=== PATIENT | male | born 1955 | race Caucasian/White ===

== ENCOUNTER 2019-11-18 21:35 | Observation (INO) ==
--- NOTE | 2019-11-18 21:58 | Emergency Department Note ---
Impression & Plan Acute dehydration, Hypomagnesemia, Hypokalemia ED Provider Note NAME: GERALD RIVERA AGE: 63 SEX: M : 1955 ARRIVES VIA: Walk-In INFORMANT: Patient, ED PROVIDER(S): Valdo Orozco MD Chief Complaint: Confusion HPI: Patient does present with his son who is concerned about confusion. The patient has not been seen by family in approximately 1-1/2 months. Patient has been acting more strange and does not seem to be himself. The son is also concerned about weight loss as well as his ability to care for himself as he is noticed that he seems disheveled and has lost weight. The patient intermittently will respond to verbal commands but the patient is awake and alert. Patient does admit to using tobacco but denies alcohol. Son does report that the patient was at [facility] but he was unable to get any additional information due to HIPAA laws and he is unaware as to whether or not the patient had been prescribed any outpatient medications or if he has been taking them appropriately. ROS: Limited secondary to patient's cooperativeness. Past medical history: See below Surgical history: See below Social history: See below Physical Exam: GENERAL: Disheveled and thin in appearance. Wearing a mask. NAD, non-toxic. EYE EXAM: Normal conjunctiva. PERRL, no anisocoria and EOM's grossly intact w/o pain. NECK: Supple, no nuchal rigidity, no adenopathy, non-tender. No signs of meningismus. LUNGS: Clear to auscultation. Normal chest wall mechanics. HEART: Tachycardic and regular, no MRG. ABDOMEN: Abdomen soft, non-tender, normo-active bowel sounds, no masses, no rebound or guarding. BACK: No CVA TTP. SKIN: No rashes and no bruising. UPPER EXTREMITIES: Upper extremities are grossly normal. LOWER EXTREMITIES: Grossly normal, no edema. NEURO EXAM: Awake alert and moves all 4 extremities. Differential diagnoses: Infection, dehydration, metabolic abnormality, hypo/hyperglycemia, electrolyte disturbance, anemia, hypoxia, cardiac sources, intracerebral event, toxicologic, neurologic, as well as other pathologies. Mood disorder, infection, hypoglycemia, electrolyte abnormalities, cardiac sources, intracerebral event, toxicologic, trauma, neurologic, as well as other pathologies. Course: Patient was seen and evaluated the bedside. Full history physical exam was performed. EKG: Indication: Tachycardia Sinus tachycardia, rate 119, normal intervals, normal axis, slight depression in V2 and V3. Slight depressions do appear new from comparison EKG April 11, 2005. Patient's rate has also increased since then. Imaging Studies: Radiology results as stated below per my review in the radiologist's interpretation: CT head: Motion artifact. No definite acute intracranial process. Radiologist Nohemy Desir MD Chest x-ray 1 view Impression: No obvious consolidation, pleural effusion, or pneumothorax. Cardiac monitoring: An order was placed for continuous cardiac monitoring. The monitor shows a rate of 125 with sinus tachycardia rhythm. MDM: Patient does present concern for weakness. The patient did have blood work completed was given IV fluids. Patient does have prerenal azotemia consistent with dehydration. Patient did receive 2 L of IV fluids. The patient does have very mild hypomagnesemia and hypokalemia. The patient was ordered magnesium and potassium for replacement. Patient does have a mild white count but no infectious symptoms normal hemoglobin and platelet count. Alcohol is negative. Patient's troponin is undetectable. He did have mild hypercalcemia but was ordered IV fluids for replacement. Patient was seen and evaluated by psych case assembler. The patient does seem to have a complete inability to care. Patient does suffer from paranoia. I did speak the on-call hospitalist and the patient was admitted to the medical service with a psychiatric consult due to concern for failure to thrive metabolic electrolyte imbalance. Past Med/Surg History Medical History Anxiety Family History Other No significant family history Social History Smoking Status: Current every day smoker Tobacco Type: Cigarettes Hx Alcohol Use: Yes Hx Substance Use: No marital status: Single Current Living Situation: Alone Feels Safe at Home: Yes Allergies Allergies Allergy/AdvReac Type Severity Reaction Status Date / Time No Known Allergies Allergy Unknown Verified 11/18/19 22:50 Home Meds Home Medications Medication Instructions Recorded Confirmed simvastatin 40 mg PO DAILY 11/18/19 11/18/19 Results & Data (ED) Vital Signs Vital Signs - 24 hr 11/18/19 21:42 11/18/19 22:42 11/19/19 00:35 Temperature 37 C Temperature Source Oral Pulse Rate 130 H Pulse Rate [Finger] 115 H 82 Respiratory Rate 20 18 18 Respiratory Effort / Characteristics Non-Labored Spontaneous Non-Labored Spontaneous Respiratory Depth Normal Normal Respiratory Pattern Regular Regular Blood Pressure 133/90 Blood Pressure [Right Arm] 127/89 127/86 Blood Pressure Mean 104 Blood Pressure Mean [Right Arm] 101 99 Blood Pressure Position [Right Arm] Lying Pulse Oximetry 97 98 98 Oxygen Delivery Method Room Air Room Air Room Air Sepsis Recent Fever Within 48 Hours No Sepsis New/Unexplained Change in Mental Status No Sepsis Action Taken by Nursing No Action Required Home Medications Current Medication List: was personally reviewed by me Laboratory Data Attestation: I reviewed the patient's lab results. Result diagrams: 11/18/19 22:35 11/18/19 22:35 Lab Results 11/18/19 11/18/19 11/18/19 Range/Units 22:35 22:35 22:35 WBC 11.60 H (4.8-10.8) K/uL RBC 4.89 (4.7-6.1) M/uL Hgb 15.2 (14.0-18.0) g/dL Hct 41.7 L (42-52) % MCV 85.3 (80-100) fL MCH 31.1 (25-34) pg MCHC 36.5 H (32-36) g/dL RDW Std Deviation 41.0 (36.4-46.3) fL RDW Coeff of Ludwig 13.4 (11.5-14.5) % Plt Count 150 (130-400) K/uL MPV 9.8 (7.4-10.4) fL Immature Gran % (Auto) 0.3 % Neut % (Auto) 72.8 % Lymph % (Auto) 12.8 % Pleasants % (Auto) 13.8 % Eos % (Auto) 0.2 % Baso % (Auto) 0.1 % Neut # (Auto) 8.46 H (1.4-6.5) K/uL Lymph # (Auto) 1.48 (1.2-3.4) K/uL Pleasants # (Auto) 1.60 H (0.11-0.59) K/uL Eos # (Auto) 0.02 (0-0.5) K/uL Baso # (Auto) 0.01 (0-0.2) K/uL Immature Gran # (Auto) 0.03 H (0.00-0.02) K/uL PT 14.0 H (9.0-12.0) Seconds INR 1.3 H (0.9-1.1) Sodium 135 L (136-145) mmol/L Potassium 2.8 L (3.5-5.1) mmol/L Chloride 99 (98-107) mmol/L Carbon Dioxide 24 (21-32) mmol/L Anion Gap 13.0 H (3-11) BUN 26 H (7-18) mg/dl Creatinine 1.05 (0.6-1.4) mg/dl Est Cr Clr Drug Dosing Not Reportable Est GFR ( Amer) 88.4 Est GFR (Non-Af Amer) 76.2 BUN/Creatinine Ratio 25.1 H (10-20) Glucose 147 H (70-99) mg/dl Calcium 10.3 H (8.5-10.1) mg/dl Magnesium 1.7 L (1.8-2.4) mg/dl Total Bilirubin 1.3 H (0.2-1) mg/dl AST 22 (15-37) U/L ALT 19 (12-78) U/L Alkaline Phosphatase 60 (45-117) U/L Troponin I < 0.015 (0-0.045) ng/ml Total Protein 7.1 (6.4-8.2) gm/dl Albumin 3.9 (3.4-5.0) gm/dl Globulin 3.2 (2.5-4.0) gm/dl Albumin/Globulin Ratio 1.2 (0.9-2) TSH 2.250 (0.300-4.500) uIu/ml Salicylates (2.8-20) mg/dl Acetaminophen (10-30) ug/ml Ethyl Alcohol mg/dL (0-3) mg/dl 11/18/19 11/18/19 Range/Units 22:35 22:35 WBC (4.8-10.8) K/uL RBC (4.7-6.1) M/uL Hgb (14.0-18.0) g/dL Hct (42-52) % MCV (80-100) fL MCH (25-34) pg MCHC (32-36) g/dL RDW Std Deviation (36.4-46.3) fL RDW Coeff of Ludwig (11.5-14.5) % Plt Count (130-400) K/uL MPV (7.4-10.4) fL Immature Gran % (Auto) % Neut % (Auto) % Lymph % (Auto) % Pleas[place] % (Auto) % Eos % (Auto) % Baso % (Auto) % Neut # (Auto) (1.4-6.5) K/uL Lymph # (Auto) (1.2-3.4) K/uL Pleasants # (Auto) (0.11-0.59) K/uL Eos # (Auto) (0-0.5) K/uL Baso # (Auto) (0-0.2) K/uL Immature Gran # (Auto) (0.00-0.02) K/uL PT (9.0-12.0) Seconds INR (0.9-1.1) Sodium (136-145) mmol/L Potassium (3.5-5.1) mmol/L Chloride (98-107) mmol/L Carbon Dioxide (21-32) mmol/L Anion Gap (3-11) BUN (7-18) mg/dl Creatinine (0.6-1.4) mg/dl Est Cr Clr Drug Dosing Est GFR ( Amer) Est GFR (Non-Af Amer) BUN/Creatinine Ratio (10-20) Glucose (70-99) mg/dl Calcium (8.5-10.1) mg/dl Magnesium (1.8-2.4) mg/dl Total Bilirubin (0.2-1) mg/dl AST (15-37) U/L ALT (12-78) U/L Alkaline Phosphatase (45-117) U/L Troponin I (0-0.045) ng/ml Total Protein (6.4-8.2) gm/dl Albumin (3.4-5.0) gm/dl Globulin (2.5-4.0) gm/dl Albumin/Globulin Ratio (0.9-2) TSH (0.300-4.500) uIu/ml Salicylates < 1.7 L (2.8-20) mg/dl Acetaminophen < 2 L (10-30) ug/ml Ethyl Alcohol mg/dL < 3.0 (0-3) mg/dl Administered Medications Magnesium Sulfate/Dextrose (Magnesium Sulfate / D5w) 1 gm in 100 mls @ 50 mls/hr IV ONE ONE Stop: 11/19/19 01:35 Last Admin: 11/18/19 23:47 Dose: 50 mls/hr Documented by: [id number] Discontinued Medications Sodium Chloride (Nss 1000ml) 2,000 mls @ 999 mls/hr IV .Q2H1M TAI Stop: 11/19/19 00:00 Last Admin: 11/18/19 22:39 Dose: 999 mls/hr Documented by: [id number] Potassium Chloride (Potassium Chloride 20 Meq Tabcr) 40 meq PO NOW STA Stop: 11/18/19 23:37 Last Admin: 11/18/19 23:46 Dose: 40 meq Documented by: [id number] Discharge Plan Visit Data Chief Complaint: Confusion Stated Complaint: AMS ED Provider: Valdo Orozco Discharge Problem: Acute dehydration, Hypomagnesemia, Hypokalemia Forms Stand Alone Forms: My [facility] Medical Prescriptions Prescriptions: No Action simvastatin 40 mg tablet 40 mg PO DAILY RF: 0
[2019-11-18] MEDS ORDERED: SODIUM CHLORIDE 0.9% 1000ML 2,000 ML IV SCH (22:00)
[2019-11-18 23:00] LABS: Basophils # (auto) 0.01 K/uL (0-0.2); Basophils % (auto) 0.1 %; Eosinophils # (auto) 0.02 K/uL (0-0.5); Eosinophils % (auto) 0.2 %; Hematocrit (blood only) 41.7 % (42-52); Hemoglobin 15.2 g/dL (14.0-18.0); Immature Granulocytes # (auto) 0.03 K/uL (0.00-0.02); Immature Granulocytes % (auto) 0.3 %; Lymphocytes # (auto) 1.48 K/uL (1.2-3.4); Lymphocytes % (auto) 12.8 %; Mean Corpuscular Hemoglobin 31.1 pg (25-34); Mean Corpuscular Hgb Conc 36.5 g/dL (32-36); Mean Corpuscular Volume 85.3 fL (80-100); Mean Platelet Volume 9.8 fL (7.4-10.4); Monocytes % (auto) 13.8 %; Neutrophils # (auto) 8.46 K/uL (1.4-6.5); Neutrophils % (auto) 72.8 %; Platelet Count 150 K/uL (130-400); RDW Coefficient of Variation 13.4 % (11.5-14.5); Red Blood Count 4.89 M/uL (4.7-6.1)
[2019-11-18 23:15] LABS: INR 1.3 (0.9-1.1)
[2019-11-18 23:20] LABS: Alanine Aminotransferase 19 U/L (12-78); Albumin Level 3.9 gm/dl (3.4-5.0); Aspartate Aminotransferase 22 U/L (15-37); BUN Creatinine Ratio 25.1 (10-20); Blood Urea Nitrogen 26 mg/dl (7-18); Calcium 10.3 mg/dl (8.5-10.1); Carbon Dioxide 24 mmol/L (21-32); Chloride 99 mmol/L (98-107); Est GFR (African American) 88.4; Est GFR (Non-African American) 76.2; Glucose 147 mg/dl (70-99); Magnesium 1.7 mg/dl (1.8-2.4); Potassium 2.8 mmol/L (3.5-5.1); Sodium 135 mmol/L (136-145)
[2019-11-18 23:30] LABS: Albumin Globulin Ratio 1.2 (0.9-2); Alkaline Phosphatase 60 U/L (45-117); Bilirubin,Total 1.3 mg/dl (0.2-1); Globulin 3.2 gm/dl (2.5-4.0); Total Protein 7.1 gm/dl (6.4-8.2); Troponin I < 0.015 ng/ml (0-0.045)
[2019-11-18] MEDS ORDERED: POTASSIUM CHLORIDE 20 MEQ TABCR PO STA (23:36)
[2019-11-18] MEDS ORDERED: MAGNESIUM SULFATE / D5W 1 GM/100 ML BAG IV ONE (23:36)
[2019-11-18 23:37] LABS: Acetaminophen < 2 ug/ml (10-30); Salicylate < 1.7 mg/dl (2.8-20)
--- NOTE | 2019-11-19 01:33 | History & Physical Report ---
Date of Service November 19, 2019 Assessment & Plan (1) Acute dehydration: Anshu Sosa is a 63-year-old male with a past medical history of emergency department evaluation for anxiety and potential auditory hallucinations who presents with his son who was concerned for failure to thrive. Failure to thrive and malnutrition,? Underlying psychosis, psychiatric disorder - Pt with flat affect and poverty of speech. History limited. Pt not guarded, but offers little spontaneous information. Salicylate/acetaminophen negative, alcohol negative at time of admit. Patient denies alcohol/substance use Patient 84 kg in June, 75kg at admit. - Pt endorses minimal solid food intake, reports he drinks most meals which are often chocolate milk. - Pt brought in by family, reports he lives alone in [place]. - Electrolyte disturbances as below -Concern for primary underlying psychiatric/cognitive condition. Patient's past history of hearing voices and his flat affect with easy distractibility and gazing at unclear stimuli around the room during HPI raises concern for underlying psychosis. Psychiatry consulted. TSH normal -Phos pending Electrolyte disturbance Suspect secondary to severe malnutrition Potassium 2.8, sodium 135, elevated BUN with normal creatinine, magnesium 1.7 Electrolyte repletion, 1 hour after IV infusions complete then BMP every [address] depressions in V4 Reported on admission, minimal changes on EKG at 2231 with no T wave inversions or reciprocal changes appreciated Troponin negative on admission Patient without chest pain QTc 433 Hyperglycemia A1c pending Insulin SSI Regular diet, nutrition consult for above Elevated INR Elevated INR of 1.3, total bilirubin 1.3 with normal AST/ALT Patient denies abdominal pain/clinical history Suspect synthetic dysfunction with nutritional depletion, differential includes biliary disease. Liver ultrasound ordered. Disposition: Med surgical, with one-to-one. DVT prophylaxis: SCDs, heparin 5000 3 times daily. Note that in the setting of his hepatic dysfunction and elevated INR has not been shown to be protective against venous thrombosis. CODE STATUS: Full code FEN GI: Electrolyte repletion as above, NSS +20 KCl 100 cc/h (2) Hypomagnesemia: (3) Hypokalemia: History of Present Illness Chief Complaint: Failure to thrive Primary Care Provider: Calderon Elizalde Anshu Sosa is a 63-year-old male with a past medical history of emergency department evaluation for anxiety and potential auditory hallucinations who presents with his son who was concerned for failure to thrive. Anshu was brought into the emergency department by his son who had not seen him in a month and a half, but reports that his father appears to have lost weight, has been disheveled, and is not able to care for himself at home. Patient has a history of inpatient psych hospitalization in [place], however due to refusal to share information/records the son and provider team is unaware of the details of that admission. He was seen in 06/13 at the emergency department and at that time had expressed depressed mood with SI with plan and positive HI. When asked if he remembers being in the emergency department previously patient reports "I think", but is does not give details. He reports that he was started on medication during his hospitalization at [facility], but does not know which medicine he was started on, and has not taken it in "a while "and reports he is not sure about how long it is been. He denies current SI/HI/AH/VH. He endorses that he still struggles with anxiety, but is not sure about what. Denies pain, fever, chills, recent illness. He reports that he eats "normally ". He reports that he "drinks mostly liquids "for his meals, usually chocolate milk. Reports that he does eat "sometimes regular food ", but but does not name any that he has eaten in the last month or give a timeframe for the last time that he had solid food. He denies diarrhea/constipation/abdominal pain/nausea/vomiting. History limited by affect/cognitive status. Limited medical, surgical, allergy, and social history and EMR reviewed. Patient denies alcohol, tobacco, and recreational drug use. CODE STATUS: Full code, patient does not show a good understanding of what CPR is or why the question is being asked. Allergies Allergy/AdvReac Type Severity Reaction Status Date / Time No Known Allergies Allergy Unknown Verified 11/18/19 22:50 Home Medications Home Medications Medication Instructions Recorded Confirmed Type simvastatin 40 mg PO DAILY 11/18/19 11/18/19 History Past Med/Surg History Medical History Anxiety Family History Other No significant family history Social History (Reviewed 11/19/19 @ 19:14 by SHARI Marshall Smoking Status: Never smoker Tobacco Type: Cigarettes Hx Alcohol Use: No Hx Substance Use: No Preferred Language: Estonian Communication Ability: Effective Non Destructive Evaluation Specialist Required: No marital status: Single Current Living Situation: Alone Other Information That Helps Us Care for You: No Feels Safe at Home: Yes Safety Concerns: Feels Safe At This Time Review of Systems Review of Systems: Constitutional: Denies fever, chills. Eyes: Denies double vision, vision change, eye pain ENT: Denies ear pain, sore throat, sinus pain Cardiovascular: Denies Chest pain, chest pressure, palpitations, extremity swelling Respiratory: Denies shortness of breath, cough, sputum production, difficulty breathing Gastrointestinal: Denies abdominal pain, nausea, vomiting, constipation, diarrhea Genitourinary: Denies pain with urination Musculoskeletal: Denies weakness, muscle aches/pain, joint aches/pain Integumentary:Denies rash, lesions, bruising Neurological: Denies headache, numbness, tingling, focal weakness Psych: Denies active and passive SI, HI. Denies auditory, visual, and olfactory hallucinations. Physical Exam Physical Exam: General: A&Ox1. NAD. Cooperative. HEENT: Atraumatic, normocephalic. Pulm: CTAB A&P. -wheezes, -rales, -rhonchi. Symmetrical chest rise. No increase work of breathing. No respiratory distress. Cardiac: RRR, -mrg. Radial pulses intact and symmetrical. Psych: Appearance: Disheveled, unshowered, unshaven Speech: Speech with slow rate, increased latency, sot volume. No stuttering. Poverty of spontaneous speech. Behavior: Decreased activity. Gazes around the room, appears intermittently distracted. Otherwise makes adequate eye contact. Cooperative, friendly Thought Processes: Poverty of spontaneous speech. Thought Content: Denies SI/HI, rumination. Endorses anxiety, does not eleborate on cause. Perceptions: Denies AH/VH. Appears distracted gazing around the room, otherwise not responding to internal stimuli. No delusions are present. Mood "OK". Affect flat. Range: Blunted/flattened Cognition: Unable to assess, gives limited appropriate answers to questions Insight/Judgment: Limited/difficult to assess. Results & Data Results & Data ([facility]) Vital Signs (Past 12 Hours) Vital Signs Temp Pulse Pulse Resp BP BP Pulse Ox 11/19/19 00:35 82 18 127/86 98 11/18/19 22:42 115 H 18 127/89 98 11/18/19 21:42 37 C 130 H 20 133/90 97 Supervising Physician Co-Signing Physician Notes Attending addendum: I have physically seen this patient, have supervised the medical residents activities, and agree with the H&P unless as otherwise noted. Assessment and Plan: Failure to thrive/protein calorie malnutrition/electrolyte disturbance- Multifactorial, including: Noncompliance with psychiatric treatment, not acceptable to be living alone. Electrolyte disturbance/dehydration- IV fluids as noted. Follow serial laboratories. Consult palliative care/public health social worker. Remainder orders and notations as noted Resident Activity Tracking Resident Involvement: Resident Care Provided Care Provided: Adult Hospital Medicine
[2019-11-19 02:19] LABS: Phosphorus 1.5 mg/dl (2.5-4.9)
[2019-11-19] MEDS ORDERED: POTASSIUM PHOS 3 MMOL/1 ML INFUSION IV STA (02:23)
[2019-11-19] MEDS ORDERED: GLUCOSE 40% GEL 15 GM TUBE PO PRN (02:32)
[2019-11-19] MEDS ORDERED: GLUCOSE 10 TABS/TUBE PO PRN (02:32)
[2019-11-19] MEDS ORDERED: CARBOHYDRATES FOR HYPOGLYCEMIA PO PRN (02:32)
[2019-11-19] MEDS ORDERED: GLUCAGON FOR INJ 1 MG VIAL SQ PRN (02:32)
[2019-11-19] MEDS ORDERED: HALOPERIDOL LACTATE 5 MG/ML 1 ML VIAL IM PRN (02:32)
[2019-11-19] MEDS ORDERED: DEXTROSE 50% 50 ML SYRINGE IV PRN (02:32)
[2019-11-19] MEDS ORDERED: POTASSIUM PHOSPHATE 30 MMOL in SODIUM CHLORIDE 0.9% 500 ML IV ONE (02:45)
[2019-11-19] MEDS: MAGNESIUM SULFATE / D5W 1 GM/100 ML BAG IV SCH ×2 (03:03→04:51)
[2019-11-19] MEDS: NSS + 20MEQ KCL 20 MEQ/1,000 ML BAG IV SCH ×3 (03:03→19:58)
--- NOTE | 2019-11-19 06:30 | CT Scan Report ---
CT head/brain wo con CT DOSE: 1326.12 mGy.cm HISTORY: Mental status change. Trauma. confusion TECHNIQUE: Multiaxial CT images of the head were performed without the use of intravenous contrast. A dose lowering technique was utilized adhering to the principles of ALARA. Comparison: None. Findings: The paranasal sinuses and mastoid air cells are clear. The calvarium and skull base are int act. The ventricles and sulci are within normal limits. There is no mass, hematoma, midline shift, or acute infarct. Impression: No acute intracranial abnormality. ACT 112: Negative or not required by law. The above report was generated using voice recognition software. It may contain grammatical, syntax or spelling errors. Electronically signed by: Mina Granados M.D. 11/19/2019 6:29 AM
[2019-11-19 06:34] LABS: Estimated Average Glucose 105 mg/dl; Hemoglobin A1C 5.3 % (4.5-5.6)
--- NOTE | 2019-11-19 06:34 | XRay Report ---
XR chest 1V portable CLINICAL HISTORY: weakness confusion COMPARISON STUDY: 08/29/2006 FINDINGS: The bones soft tissues and hemidiaphragms are normal. The cardiomediastinal silhouette is n ormal. The lungs are clear. The pulmonary vasculature is normal. IMPRESSION: Negative chest. ACT 112: Negative or not required by law. The above report was generated using voice recognition software. It may contain grammatical, syntax or spelling errors. Electronically signed by: Mina Granados M.D. 11/19/2019 6:32 AM
[2019-11-19 07:10] LABS: Amphetamines+Metham, Urine Neg (Neg); Barbiturates, Urine Neg (Neg); Benzodiazepine, Urine Neg (Neg); Cocaine, Urine Neg (Neg); MDMA (Ecstacy), Urine Neg (Neg); Methadone, Urine Neg (Neg); Opiate, Urine Neg (Neg); Phencyclidine, Urine Neg (Neg)
[2019-11-19 07:18] LABS: Albumin Globulin Ratio 1.2 (0.9-2); Albumin Level 3.3 gm/dl (3.4-5.0); BUN Creatinine Ratio 21.6 (10-20); Bilirubin,Total 1.2 mg/dl (0.2-1); Calcium 8.4 mg/dl (8.5-10.1); Creatinine Clr Calc Pharmacy 110.9 ml/min; Est GFR (African American) 119.5; Est GFR (Non-African American) 103.1; Globulin 2.7 gm/dl (2.5-4.0); Potassium 3.8 mmol/L (3.5-5.1)
[2019-11-19] MEDS: INSULIN ASPART 100 UNITS/ML 3 ML PEN SC SCH ×4 (07:59→21:20)
[2019-11-19] MEDS: MAGNESIUM OXIDE 400 MG TAB PO SCH ×2 (08:02→20:39)
[2019-11-19] MEDS: POTASSIUM CHLORIDE 20 MEQ TABCR PO SCH ×3 (08:02→20:39)
[2019-11-19] MEDS: POTASSIUM CHLORIDE / WTR 10 MEQ/100 ML PLCT IV SCH ×6 (08:03→14:05)
[2019-11-19 08:04] LABS: Appearance Urine Clear (Clear); Blood Urine 1+ (Negative); Color Urine Yellow; Glucose Urine UA Negative (Negative); Ketones Urine 1+ (Negative); Leukocyte Esterase Urine Negative (Negative); Nitrite Urine Negative (Negative); Protein Urine Negative (Negative); Specific Gravity Urine 1.025 (1.000-1.030); Urobilinogen Urine Positive (Negative); pH Urine 6.5 (4.5-7.5)
[2019-11-19 08:14] LABS: Bacteria Urine Negative (Negative); Bilirubin Urine Negative (Negative); Epithelial Cell Urine 0-5 /lpf (0-5); Ictotest Urine Negative (Negative); Mucus Urine Present (None Prsent); RBC Urine 0-4 /hpf (0-4)
--- NOTE | 2019-11-19 10:52 | Ultrasound Report ---
US liver CLINICAL HISTORY: elevated bili, INR pain. Nausea. COMPARISON STUDY: No previous studies for comparison. FINDINGS: Gallbladder is normal. No shadowing gallstones. Common bile duct 3 mm. Liver is uniform thr oughout. Pancreas is not well seen. Right kidney is negative for hydronephrosis. IMPRESSION: 1. Poor visibility of the pancreas due to overlying bowel content. 2. Otherwise normal study. ACT 112: Negative or not required by law. The above report was generated using voice recognition software. It may contain grammatical, syntax or spelling errors. Electronically signed by: Mina Granados M.D. 11/19/2019 10:50 AM
--- NOTE | 2019-11-19 15:37 | Psychiatric Consultation ---
Date of Consultation November 19, 2019 Impression / Recommendations Impression Dr. Eagle Medley was directly involved in review and discussion of the patient's case and participated in medical decision making regarding treatment recommendations. RECOMMENDATIONS: 11/18 - Psychiatric consultation requested by hospitalist team to evaluate patient due to flat affect, poor self-care, and concern for history of auditory hallucinations. Records indicate patient was admitted to [facility] in 06/2019 for anxiety, HI, and passive SI. Case discussed with hospitalist resident, Dr. Coronado. - Patient is a very limited historian and unable to provide reliable information regarding his psychiatric history. Pt did admit that risperidone and bupropion (most recent psychotropic medications according to external medication history) sounded familiar, but was unsure what they were being used to treat. Pt did verbalize willingness to resume risperidone. - Little is known about previous psychiatric history, differential at this time includes: depression with psychotic features, major depressive disorder, schizophrenia, schizoaffective disorder, or potential organic causes of AMS. CT of head completed in ED without acute intracranial abnormalities. Given history, it seems most likely presentation is in some way related to underlying psychiatric history - will attempt to gather additional information as able. Will re-evaluate patient when nearing medical clearance to determine criteria for inpatient psychiatric admission. - In the interim, suggest resuming risperidone but at a lower dose of 0.5mg BID. In order to target mood and also stimulate appetite, would suggest trial of mirtazapine - starting at 7.5mg and titrating as tolerated. Recommend patient have referrals for outpatient psychiatric providers. Will attempt to g ather additional information and are available for additional recommendations as indicated. - Appreciate the opportunity to participate in the care of this patient. Please reach out to our service with any additional questions or updates. Psych History Identifying Data 63-year-old male admitted medically on 11/19/2019 after presenting to the ED upon recommendation from his son with failure to thrive. There is documentation of history of psychiatric hospitalizations, and there is concern that patient's flat affect, inability to care for self, and paucity of thought are related to a primary psychiatric condition. Psychiatric consultation is requested by hospitalist service to further evaluate. Chief Complaint "I'm here because my son brought me in. He didn't think I looked real good or healthy." History of Present Illness Anshu Sosa is a 63-year-old male admitted medically on 11/19/2019 after presenting to the ED upon recommendation from his son with failure to thrive. Son reported a 40-50lb weight loss in the last 1.5 months. There was concern that the patient was not appropriately caring for himself and may be having auditory hallucinations. Pt was hospitalized at [facility] in 06/2019 after presenting to our ED for anxiety, and then disclosing HI (specific plan but would not identify targeted individual) and passive SI. It appears that the patient was discharged on risperidone 1mg BID and bupropion 100mg daily. Limited available information was reviewed during morning report with psychiatric nurse liaison and supervising psychiatrist. Pt is limited with regard to ability to participate in meaningful interview. He had to be asked numerous times his understanding of events leading to his admission. A combination of his responses includes "I'm here because my son brought me in", "he wants me to feel better", and "he didn't think I looked real good or healthy." Pt is unable at time of our interview to verbalize what he is being treated for medically. When reviewing various symptoms related to psychiatric disorders, the patient only admits to "sleep is difficult sometimes" - but is unable to explain this further. Pt reports his appetite and mood has been "fairly normal I guess." Pt repeatedly denied auditory hallucinations, though did not seem to fully understand the question. After several attempts at re- phrasing the question, the patient did admit "I guess sometimes" - but could not further explain the context or presentation of the hallucinations. Pt is aware that he had been hospitalized in [place], but was unable to explain what that hospitalization was for. Pt did admit that risperidone and bupropion sounded like familiar medication names, but was not sure what they were prescribed for. He admitted to willingness to trial medications that would help with his mood. Pt denied other needs from our service at this time. Past Psychiatric History Current Psychiatric Diagnosis: Only known diagnoses include depression and anxiety Outpatient Services: None known. Pt does have an intake [facility], though was not seen due to being out of network. PCP had referred for anxiety, depression, and difficulty concentrating. Previous Psych Admissions: Only information available indicates a psychiatric admission to [facility] in 06/2019. Past Medication Trials: History is limited to only external medication history: 1. Risperdal 2. Wellbutrin 3. Seroquel Allergies Allergy/AdvReac Type Severity Reaction Status Date / Time No Known Allergies Allergy Unknown Verified 11/18/19 22:50 Home Medications Home Medications Medication Instructions Recorded Confirmed Type simvastatin 40 mg PO DAILY 11/18/19 11/18/19 History Family History Unavailable as patient is a limited historian. Substance Abuse History Unavailable as patient is a limited historian. Personal History Living Arrangements: Apartment (living in [place]) Patient History Medical History Anxiety Family History Other No significant family history Social History Smoking Status: Never smoker Tobacco Type: Cigarettes Hx Alcohol Use: No Hx Substance Use: No Preferred Language: Ukrainian Communication Ability: Effective Umbrella Frame Maker Required: No Beliefs That Will Affect Care: None marital status: Single Current Living Situation: Alone Other Information That Helps Us Care for You: No Feels Safe at Home: Yes Safety Concerns: Feels Safe At This Time Physical Exam Psychiatric: Orientation: alert, oriented to person and oriented to place; + not oriented to time (only generally, able to state it is Summer 2019) Apperance: appropriately dressed, + disheveled and appeared stated age Slim- appearing male seated on bed, appearing restless and fidgety. Pt is appropriately dressed for setting in a hospital gown. Pt appears somewhat unkempt and disheveled. Level of hygiene is currently poor. Eye Contact: + poor eye contact (staring off in distance for prolonged periods; appears distracted at times) Motor Behavior: + psychomotor agitation (appearing restless and fidgety at times) Speech: + abnormal r ate/rhythm/volume of speech very brief responses to questions, often asking for questions repeated, delayed responses to questions Affect: + flat affect and + constricted affect Mood: no depressed mood ("fairly normal I guess") Thought Process: + thought blocking and + concrete thought process Thought Content: Paucity of thought, limited ability to participate in conversation. Hallucinations: patient denied hallucinations, though does appear to be responding to internal stimuli Cognition: + recent memory not intact, + remote memory not intact and + attention not intact Insight: + severely impaired insight Judgement: + severely impaired judgement Vital Signs (Past 24 Hours): Last Vital Signs Temp 36.4 C L 11/19/19 11:47 Pulse 93 H 11/19/19 11:47 Resp 16 11/19/19 11:47 BP 111/81 11/19/19 11:47 Pulse Ox 98 11/19/19 11:47 Review of Systems Constitutional: denied Cardiovascular: denied Respiratory: denied Gastrointestinal: denied Neurological: denied Psychiatric: denies symptoms other than stated above Total of at least 10 systems reviewed, pertinent positives as above and in HPI. Results & Data (PSY) Medications Administered Potassium Chloride/Sodium Chloride (Normal Saline W/20 Meq Kcl) 20 meq in 1,000 mls @ 100 mls/hr IV .Q10H TAI Stop: 12/19/19 02:59 Last Infusion: 11/19/19 15:14 Dose: 100 mls/hr Documented by: [id number] Infusion: 11/19/19 08:04 Dose: 0 mls/hr Documented by: [id number] Admin: 11/19/19 03:03 Dose: 100 mls/hr Documented by: [id number] Insulin Aspart (Insulin Aspart 100 Units/Ml 3 Ml Pen) 0 units SC ACHS TAI Stop: 12/19/19 07:29 Last Admin: 11/19/19 12:14 Dose: Not Given Documented by: [id number] Cosigned by: [id number] Admin: 11/19/19 07:59 Dose: 1 units Documented by: [id number] Cosigned by: [id number] Magnesium Oxide (Magnesium Oxide 400 Mg Tab) 400 mg PO BID TAI Stop: 12/19/19 08:59 Last Admin: 11/19/19 08:02 Dose: 400 mg Documented by: [id number] Potassium Chloride (Potassium Chloride 20 Meq Tabcr) 20 meq PO TID TAI Stop: 12/19/19 08:59 Last Admin: 11/19/19 14:06 Dose: 20 meq Documented by: [id number] Admin: 11/19/19 08:02 Dose: 20 meq Documented by: [id number] Coding Level of Care Code 95551 [facility] Intl Hosp Care Lvl 2
[2019-11-19 16:26] LABS: BUN Creatinine Ratio 10.8 (10-20); Calcium 8.2 mg/dl (8.5-10.1); Creatinine Clr Calc Pharmacy 75.4 ml/min; Est GFR (African American) 93.7; Est GFR (Non-African American) 80.9
[2019-11-19 17:37] LABS: Magnesium 2.2 mg/dl (1.8-2.4); Phosphorus 1.8 mg/dl (2.5-4.9)
--- NOTE | 2019-11-19 18:14 | Hospitalist Progress Note ---
Date of Service November 19, 2019 Assessment & Plan (1) Acute dehydration: Anshu Sosa is a 63-year-old male with a past medical history of emergency department evaluation for anxiety and potential auditory hallucinations who presented on 11/18/2019 with his son who was concerned for failure to thrive and weight loss. Failure to thrive and malnutrition - Pt with flat affect and poverty of speech. History limited. Pt not guarded, but offers little spontaneous information. Salicylate/acetaminophen negative, alcohol negative at time of admit. Patient denies alcohol/substance use Patient 84 kg in June, 75kg at admit. - Pt endorses minimal solid food intake, reports he drinks most meals which are often chocolate milk. - Pt brought in by family, reports he lives alone in [place]. - Phos 1.6, K 2.8, Mg 1.7 - electrolytes repleted in addition to starting patient on regular diet, for concern of Re-feeding syndrome Acute Psychosis - flat affect, responding to internal stimuli, history of psychiatric hospitalizations - malnutrition likely outcome of psychiatric diagnosis - Psychiatry consulted: - ddx of depression with psychosis, schizophrenia, schizoaffective disorder, or potential organic causes of AMS - recommended starting Risperidone 0.5mg BID and Mirtazepine 7.5 mg QHS, given that these were medications that the patient had been on in previous hospitalization - will continue to follow this weekend and will determine if patient meets criteria for inpatient psychiatric admission when medically stable Suspect secondary to severe malnutrition ST depressions in V4 Reported on admission, minimal changes on EKG at 2231 with no T wave inversions or reciprocal changes appreciated Troponin negative on admission Patient without chest pain QTc 433 Elevated INR Elevated INR of 1.3, total bilirubin 1.3 with normal AST/ALT Patient denies abdominal pain/clinical history Suspect synthetic dysfunction with nutritional depletion, liver US showed no signs of biliary disease Disposition: Med/surg, with one-to-one, psych will determine need for inpatient psych when medically stable DVT prophylaxis: SCDs CODE STATUS: Full code FEN GI: Regular Diet, Electrolyte repletion as above Admission and Anticipated Discharge Date Admission Date: November 19, 2019 Subjective No acute events overnight. Tachycardic 100s-120s, otherwise VSS/WNL. Decreased UOP 0.18 mL/kg/hr. Review of Systems Constitutional: no fever and no chills Respiratory: no cough and no dyspnea Cardiovascular: no chest pain Gastrointestinal: no abdominal pain, no nausea and no vomiting Genitourinary: no dysuria Physical Exam Constitutional: + thin inattentive, staring out the window Respiratory: normal respiratory effort, lungs clear to auscultation Cardiovascular: RRR, no murmur, no edema Gastrointestinal (Abdomen): normal bowel sounds, soft, nontender, no he patosplenomegaly Musculoskeletal: no cyanosis or clubbing, extremities motor strength 5/5 Skin: no rashes, warm and dry Neurologic: patellar DTR's 2+ bilat, sensation intact Psychiatric: patient had flat affect, speaks in short sentences, appears to be responding to internal stimuli, denies SI/HI, denies auditory/visual hallucinations, says he has been hospitalized several times before and given psychiatric medications. He would not go into further detail when probed. Lymphatic: no cervical lymphadenopathy Results & Data Results & Data ([facility]) Vital Signs (Past 12 Hours) Vital Signs Temp Pulse Resp BP BP Pulse Ox 11/19/19 16:19 36.7 C 84 18 109/74 98 11/19/19 11:47 36.4 C L 93 H 16 111/81 98 11/19/19 07:51 36.6 C 92 H 16 131/86 99 CBC Results Results Complete Blood Count Results: RBC 4.89 M/uL (4.7-6.1) 11/18/19 WBC 11.60 K/uL (4.8-10.8) H 11/18/19 Hgb 15.2 g/dL (14.0-18.0) 11/18/19 Hct 41.7 % (42-52) L 11/18/19 Plt Count 150 K/uL (130-400) 11/18/19 Chemistry (BMP) Results BMP Results: Sodium 136 mmol/L (136-145) 11/19/19 Potassium 4.0 mmol/L (3.5-5.1) 11/19/19 Chloride 105 mmol/L (98-107) 11/19/19 BUN 11 mg/dl (7-18) 11/19/19 Creatinine 1.00 mg/dl (0.6-1.4) 11/19/19 Glucose 111 mg/dl (70-99) H 11/19/19 LFT Results Results Liver Function Test Results: ALT 16 U/L (12-78) 11/19/19 AST 20 U/L (15-37) 11/19/19 Alkaline Phosphatase 49 U/L (45-117) 11/19/19 Total Protein 6.0 gm/dl (6.4-8.2) L 11/19/19 Albumin 3.3 gm/dl (3.4-5.0) L 11/19/19 Total Bilirubin 1.2 mg/dl (0.2-1) H 11/19/19 Resident Activity Tracking Resident Involvement: Resident Care Provided Care Provided: [facility] Medicine
[2019-11-19] MEDS: MIRTAZAPINE TAB 15 MG TAB PO SCH (20:39)
[2019-11-19] MEDS: risperiDONE 0.5 MG TABLET PO SCH (20:39)
--- NOTE | 2019-11-19 22:41 | Electrocardiogram Report ---
Test Reason : Blood Pressure : / mmHG Vent. Rate : 119 BPM Atrial Rate : 119 BPM P-R Int : 158 ms QRS Dur : 078 ms QT Int : 308 ms P-R-T Axes : 043 033 051 degrees QTc Int : 433 ms Poor data quality, interpretation may be adversely affected Sinus tachycardia Nonspecific ST and T wave abnormality Abnormal ECG When compared with ECG of 11-APR-2005 06:14, Vent. rate has increased BY [address] now depressed in Anterior leads Nonspecific T wave abnormality no longer evident in Inferior leads Confirmed by Connor Jerez ([id number]) on 11/19/2019 10:40:54 PM Referred By: REFERRED SELF Confirmed By:Connor Jerez
--- NOTE | 2019-11-20 03:37 | Billing Data ---
Date of Service November 20, 2019 Coding Level of Care Code 23176 Initial Inpt Care Lvl 2
[2019-11-20] MEDS: NSS + 20MEQ KCL 20 MEQ/1,000 ML BAG IV SCH ×2 (05:36→14:53)
[2019-11-20 07:42] LABS: Hematocrit (blood only) 38.1 % (42-52); Hemoglobin 13.4 g/dL (14.0-18.0); Mean Corpuscular Hemoglobin 30.9 pg (25-34); Mean Corpuscular Hgb Conc 35.2 g/dL (32-36); Mean Corpuscular Volume 87.8 fL (80-100); RDW Coefficient of Variation 13.9 % (11.5-14.5); RDW Standard Deviation 44.5 fL (36.4-46.3); Red Blood Count 4.34 M/uL (4.7-6.1); White Blood Count 5.17 K/uL (4.8-10.8)
--- NOTE | 2019-11-20 07:42 | Hospitalist Progress Note ---
Date of Service November 20, 2019 Assessment & Plan (1) Acute dehydration: Anshu Sosa is a 63-year-old male with a past medical history of emergency department evaluation for anxiety and potential auditory hallucinations who presented on 11/18/2019 with his son who was concerned for FTT and weight loss. Failure to thrive and malnutrition - Pt with flat affect and poverty of speech. History limited. Pt not guarded, but offers little spontaneous information. Salicylate/acetaminophen negative, alcohol negative at time of admit. Patient denies alcohol/substance use Patient 84 kg in June, 75kg at admit. - Pt endorses minimal solid food intake, reports he drinks most meals which are often chocolate milk - can consider Ensure/Boost nutrition drinks upon d/c - Pt brought in by family, reports he lives alone in [place]. - Electrolyte monitoring: - (11/18) Phos 1.6, K 2.8, Mg 1.7 - electrolytes repleted in addition to starting patient on regular diet, for concern of Re-feeding syndrome - (11/19) Phos 2.1, K 4.2, Mg 2.1 - continue to monitor at this time. Can consider P repletion if persistently low at tomorrow's AM labs Acute Psychosis - flat affect, responding to internal stimuli, history of psychiatric hospitalizations - malnutrition likely outcome of psychiatric diagnosis - Psychiatry consulted 11/18, appreciate recs: - ddx of depression with psychosis, schizophrenia, schizoaffective disorder, or potential organic causes of AMS -Started risperidone 0.5mg BID and mirtazepine 7.5 mg QHS at the rec of psych, given that these were medications that the patient had been on in previous hospitalization - will continue to follow this weekend and will determine if patient meets criteria for inpatient psychiatric admission when medically stable Suspect that the acute psychosis is exacerbated/borne from severe malnutrition ST depressions in V4 (11/17) Reported on admission, minimal changes on EKG at 2231 with no T wave inversions or reciprocal changes appreciated Troponin negative on admission Patient without chest pain QTc 433 Elevated INR (11/17) Elevated INR of 1.3, total bilirubin 1.3 with normal AST/ALT Patient denies abdominal pain/clinical history Suspect synthetic dysfunction with nutritional depletion, liver US showed no signs of biliary disease Disposition: Med/surg, with one-to-one, psych will determine need for inpatient psych when medically stable DVT prophylaxis: SCDs CODE STATUS: Full code FEN GI: Regular Diet, Electrolyte repletion as above; given patient's FTT/malnutrition, monitor for re-feeding syndrome Admission and Anticipated Discharge Date Admission Date: November 19, 2019 Supervising Physician Co-Signing Physician Notes I also saw the patient with the resident physician and confirmed santos portions of the history and physical examination. I agree with the impression and plan as noted above. Await psychiatric consultation here; continue to encourage p.o. intake; replete electrolyte abnormalities -his potassium and magnesium have improved; suspect his phosphorus will improve as his p.o. intake improves, although we will consider adding oral phosphorus supplement should he again be low tomorrow. Just prior to our examination, the patient's son met with the psychiatry nurse; he also brought in some additional discharge information from the patient's recent inpatient psychiatric admission at [facility]. While this information did have his discharge medications, it did not have any physician narrative/documentation regarding the admission. I believe this information has been requested from medical records. Subjective NAEO. At the bedside this morning, Mr. Brasher is minimally talkative but does answer some questions. Was able to eat ~50% of his breakfast this AM and some of his lunch. No pain. No shortness of breath. No leg pain/swelling. No dark/discolored stools or blood in stool. Physical Exam Constitutional: well developed, + well hydrated and + thin Respiratory: normal respiratory effort, lungs clear to auscultation Cardiovascular: RRR, no murmur, no edema Extremities: no calf tenderness Psychiatric: Orientation: alert and oriented x 3 Affect: + flat affect Insight: + limited insight Results & Data Results & Data ([facility]) Vital Signs (Past 12 Hours) Vital Signs Temp Pulse Resp BP Pulse Ox 11/20/19 07:11 36.8 C 91 H 18 105/68 98 11/20/19 03:33 36.8 C 88 18 99/61 L 94 11/19/19 23:09 37.0 C 79 18 109/68 96 Resident Activity Tracking Resident Involvement: Resident Care Provided Care Provided: Adult [facility] Medicine
[2019-11-20 08:11] LABS: Albumin Level 3.2 gm/dl (3.4-5.0); BUN Creatinine Ratio 8.2 (10-20); Bilirubin Direct 0.2 mg/dl (0-0.2); Calcium 8.9 mg/dl (8.5-10.1); Creatinine Clr Calc Pharmacy 103.3 ml/min; Est GFR (African American) 113.5; Est GFR (Non-African American) 97.9; Magnesium 2.1 mg/dl (1.8-2.4); Phosphorus 2.1 mg/dl (2.5-4.9); Potassium 4.2 mmol/L (3.5-5.1)
[2019-11-20 08:13] LABS: Total Protein 5.9 gm/dl (6.4-8.2)
[2019-11-20 08:14] LABS: Acanthocytes 1+; Basophils # (auto) 0.02 K/uL (0-0.2); Basophils % (auto) 0.4 %; Eosinophils # (auto) 0.09 K/uL (0-0.5); Eosinophils % (auto) 1.7 %; Immature Granulocytes # (auto) 0.01 K/uL (0.00-0.02); Immature Granulocytes % (auto) 0.2 %; Lymphocytes # (auto) 1.66 K/uL (1.2-3.4); Lymphocytes % (auto) 32.1 %; Mean Platelet Volume 9.9 fL (7.4-10.4); Monocytes # (auto) 0.69 K/uL (0.11-0.59); Monocytes % (auto) 13.3 %; Neutrophils % (auto) 52.3 %; Platelet Count 99 K/uL (130-400); Platelet Estimate Decreased (Normal)
[2019-11-20] MEDS: POTASSIUM CHLORIDE 20 MEQ TABCR PO SCH ×3 (08:32→20:48)
[2019-11-20] MEDS: risperiDONE 0.5 MG TABLET PO SCH ×2 (08:33→20:48)
[2019-11-20] MEDS: INSULIN ASPART 100 UNITS/ML 3 ML PEN SC SCH ×4 (08:34→20:59)
[2019-11-20] MEDS: MAGNESIUM OXIDE 400 MG TAB PO SCH ×2 (09:23→20:48)
[2019-11-20] MEDS ORDERED: POTASSIUM PHOS 3 MMOL/1 ML INFUSION IV STA (12:18)
[2019-11-20] MEDS: MIRTAZAPINE TAB 15 MG TAB PO SCH (20:48)
[2019-11-21] MEDS: NSS + 20MEQ KCL 20 MEQ/1,000 ML BAG IV SCH ×2 (00:55→08:16)
[2019-11-21 07:34] LABS: Basophils # (auto) 0.01 K/uL (0-0.2); Basophils % (auto) 0.2 %; Eosinophils # (auto) 0.06 K/uL (0-0.5); Eosinophils % (auto) 1.4 %; Hematocrit (blood only) 37.6 % (42-52); Hemoglobin 13.1 g/dL (14.0-18.0); Immature Granulocytes # (auto) 0.01 K/uL (0.00-0.02); Immature Granulocytes % (auto) 0.2 %; Lymphocytes % (auto) 25.9 %; Mean Corpuscular Hemoglobin 30.3 pg (25-34); Mean Corpuscular Volume 86.8 fL (80-100); Mean Platelet Volume 10.4 fL (7.4-10.4); Monocytes # (auto) 0.48 K/uL (0.11-0.59); Monocytes % (auto) 11.3 %; Neutrophils # (auto) 2.58 K/uL (1.4-6.5); Platelet Count 104 K/uL (130-400); RDW Coefficient of Variation 13.8 % (11.5-14.5); RDW Standard Deviation 43.2 fL (36.4-46.3); Red Blood Count 4.33 M/uL (4.7-6.1); White Blood Count 4.24 K/uL (4.8-10.8)
[2019-11-21 07:44] LABS: Mean Corpuscular Hgb Conc 34.8 g/dL (32-36)
[2019-11-21 07:53] LABS: Albumin Level 3.1 gm/dl (3.4-5.0); BUN Creatinine Ratio 4.2 (10-20); Calcium 9.2 mg/dl (8.5-10.1); Creatinine Clr Calc Pharmacy 119.5 ml/min; Est GFR (African American) 120.2; Est GFR (Non-African American) 103.7; Magnesium 1.9 mg/dl (1.8-2.4)
[2019-11-21 07:56] LABS: Bilirubin Direct 0.3 mg/dl (0-0.2); Bilirubin,Total 0.9 mg/dl (0.2-1); Phosphorus 2.4 mg/dl (2.5-4.9); Total Protein 6.2 gm/dl (6.4-8.2)
[2019-11-21] MEDS: MAGNESIUM OXIDE 400 MG TAB PO SCH ×2 (08:15→20:43)
[2019-11-21] MEDS: POTASSIUM CHLORIDE 20 MEQ TABCR PO SCH ×3 (08:15→20:43)
[2019-11-21] MEDS: risperiDONE 0.5 MG TABLET PO SCH ×2 (08:15→20:44)
[2019-11-21] MEDS: INSULIN ASPART 100 UNITS/ML 3 ML PEN SC SCH ×4 (09:17→20:43)
--- NOTE | 2019-11-21 12:47 | Psychiatric Progress Note ---
Date of Service November 21, 2019 Impression / Recommendations Impression RECOMMENDATIONS: 11/18 - Psychiatric consultation requested by hospitalist team to evaluate patient due to flat affect, poor self-care, and concern for history of auditory hallucinations. Records indicate patient was admitted to [facility] in 06/2019 for anxiety, HI, and passive SI. Case discussed with hospitalist resident, Dr. Coronado. - Patient is a very limited historian and unable to provide reliable information regarding his psychiatric history. Pt did admit that risperidone and bupropion (most recent psychotropic medications according to external medication history) sounded familiar, but was unsure what they were being used to treat. Pt did verbalize willingness to resume risperidone. - Little is known about previous psychiatric history, differential at this time includes: depression with psychotic features, major depressive disorder, schizophrenia, schizoaffective disorder, or potential organic causes of AMS. CT of head completed in ED without acute intracranial abnormalities. Given history, it seems most likely presentation is in some way related to underlying psychiatric history - will attempt to gather additional information as able. Will re-evaluate patient when nearing medical clearance to determine criteria for inpatient psychiatric admission. - In the interim, suggest resuming risperidone but at a lower dose of 0.5mg BID. In order to target mood and also stimulate appetite, would suggest trial of mirtazapine - starting at 7.5mg and titrating as tolerated. Recommend patient have referrals for outpatient psychiatric providers. Will attempt to gather additional information and are available for additional recommendations as indicated. - Appreciate the opportunity to participate in the care of this patient. Ple ase reach out to our service with any additional questions or updates. 11/20 -Patient appearing a little more interactive today. Still likely responding to internal stimuli -We will continue Risperdal 0.5 mg p.o. twice daily as trajectory appears positive however might want to consider converting this to olanzapine with less risk for EPS and akathisia which might also be ultimately appetite stimulating -Increase Remeron to 30 mg p.o. nightly to get into antidepressant range of dose. -Hopefully we will have additional records from [place] by tomorrow which will help elucidate treatment history -We will reevaluate for potential consideration for psychiatric admission once medically cleared and stable off IV fluids.. Interval History Chief Complaint Patient seen for follow-up of suspected psychotic depression and failure to thrive Review of Systems Notes Denies SI Subjective Subjective Patient was seen & assessed and interval progress reviewed. Medical progress note from 11/19/2028 reviewed. Metabolic labs improving but remains on IVs and phosphorus remains a little low. We are pursuing outside records and have obtained release of information for [facility]. Discharge instructions from [place] provided by patient's son indicate patient was prescribed Wellbutrin SR 100 mg daily, Risperdal 1 mg twice daily, and Remeron 22.5 mg nightly. He appears a little more interactive today but still quite blunted. Acknowledges feeling down but does not further describe. Denies active suicidal ideation today. Admits he did not take medicines consistently. Physical Exam Psychiatric Apperance: + disheveled Eye Contact: + fair eye contact Motor Behavior: + akathisia (Appears restless) Speech: + abnormal rate/rhythm/volume of speech (Soft, minimal) Affect: + blunted affect Mood: no depressed mood (" Okay I guess") Thought Process: + concrete thought process (slowing) No overt delusions expressed Suicidal Thoughts: denies suicidal thoughts and denies suicidal plan Hallucinations: no auditory hallucinations (However patient was observed looking abruptly over his left shoulder as if responding to internal stim) and no visual hallucinations Insight: + impaired insight Judgement: + impaired judgement Vital Signs (Past 24 Hours) Last Vital Signs Temp 36.8 C 11/21/19 11:15 Pulse 98 H 11/21/19 11:15 Resp 20 11/21/19 11:15 BP 108/72 11/21/19 11:15 Pulse Ox 99 11/21/19 11:15 Results & Data ([facility]) Laboratory Results Laboratory Results - last 24 hr 11/20/19 11/20/19 11/21/19 16:36 20:10 06:50 WBC 4.24 L RBC 4.33 L Hgb 13.1 L Hct 37.6 L MCV 86.8 MCH 30.3 MCHC 34.8 RDW Std Deviation 43.2 RDW Coeff of Ludwig 13.8 Plt Count 104 L MPV 10.4 Immature Gran % (Auto) 0.2 Neut % (Auto) 61.0 Lymph % (Auto) 25.9 Early % (Auto) 11.3 Eos % (Auto) 1.4 Baso % (Auto) 0.2 Neut # (Auto) 2.58 Lymph # (Auto) 1.10 L Early # (Auto) 0.48 Eos # (Auto) 0.06 Baso # (Auto) 0.01 Immature Gran # (Auto) 0.01 Sodium Potassium Chloride Carbon Dioxide Anion Gap BUN Creatinine Est Cr Clr Drug Dosing Est GFR ( Amer) Est GFR (Non-Af Amer) BUN/Creatinine Ratio Glucose POC Glucose 95 94 Calcium Phosphorus Magnesium Total Bilirubin Direct Bilirubin AST ALT Alkaline Phosphatase Total Protein Albumin 11/21/19 06:50 WBC RBC Hgb Hct MCV MCH MCHC RDW Std Deviation RDW Coeff of Ludwig Plt Count MPV Immature Gran % (Auto) Neut % (Auto) Lymph % (Auto) Early % (Auto) Eos % (Auto) Baso % (Auto) Neut # (Auto) Lymph # (Auto) Early # (Auto) Eos # (Auto) Baso # (Auto) Immature Gran # (Auto) Sodium 135 L Potassium 4.0 Chloride 104 Carbon Dioxide 24 Anion Gap 7.0 BUN 3 L Creatinine 0.67 Est Cr Clr Drug Dosing 119.5 Est GFR ( Amer) 120.2 Est GFR (Non-Af Amer) 103.7 BUN/Creatinine Ratio 4.2 L Glucose 87 POC Glucose Calcium 9.2 Phosphorus 2.4 L Magnesium 1.9 Total Bilirubin 0.9 Direct Bilirubin 0.3 H AST 21 ALT 21 Alkaline Phosphatase 65 Total Protein 6.2 L Albumin 3.1 L Current Inpatient Medications Current Inpatient Medications: Current Inpatient Medications Dextrose (Dextrose 50% 50 Ml Syringe) 25 - 50 ml IV UD PRN; Protocol PRN Reason: Hypoglycemia Protocol Stop: 12/19/19 02:31 Glucagon (Glucagon For Inj 1 Mg Vial) 1 mg SQ UD PRN; Protocol PRN Reason: Hypoglycemia Protocol Stop: 12/19/19 02:31 Glucose (Glucose 10 Tabs/Tube) 4 - 8 tabs PO UD PRN; Protocol PRN Reason: Hypoglycemia Protocol Stop: 12/19/19 02:31 Glucose (Glucose 40% Gel 15 Gm Tube) 15 - 30 gm PO UD PRN; Protocol PRN Reason: Hypoglycemia Protocol Stop: 12/19/19 02:31 Haloperidol Lactate (Haloperidol Lactate 5 Mg/Ml 1 Ml Vial) 5 mg IM DAILY PRN PRN Reason: severe agitation/pt safety Stop: 12/19/19 02:31 Insulin Aspart (Insulin Aspart 100 Units/Ml 3 Ml Pen) 0 units SC ACHS TAI Stop: 12/19/19 07:29 Last Admin: 11/21/19 09:17 Dose: Not Given Documented by: Magnesium Oxide (Magnesium Oxide 400 Mg Tab) 400 mg PO BID TAI Stop: 12/19/19 08:59 Last Admin: 11/21/19 08:15 Dose: 400 mg Documented by: Mirtazapine (Mirtazapine Tab 15 Mg Tab) 7.5 mg PO HS TAI Stop: 12/19/19 20:59 Last Admin: 11/20/19 20:48 Dose: 7.5 mg Documented by: Miscellaneous (Carbohydrates For Hypoglycemia ) 15 - 30 gm PO UD PRN PRN Reason: Hypoglycemia Protocol Stop: 12/19/19 02:31 Potassium Chloride (Potassium Chloride 20 Meq Tabcr) 20 meq PO TID TAI Stop: 12/19/19 08:59 Last Admin: 11/21/19 08:15 Dose: 20 meq Documented by: Risperidone (Risperidone 0.5 Mg Tablet) 0.5 mg PO BID TAI Stop: 12/19/19 20:59 Last Admin: 11/21/19 08:15 Dose: 0.5 mg Documented by:
--- NOTE | 2019-11-21 13:02 | Hospitalist Progress Note ---
Date of Service November 21, 2019 Assessment & Plan (1) Acute dehydration: Anshu Sosa is a 63-year-old male with a past medical history of emergency department evaluation for anxiety and potential auditory hallucinations who presented on 11/18/2019 with his son who was concerned for FTT and weight loss. Failure to thrive and malnutrition - Pt with flat affect and poverty of speech. History limited. Pt not guarded, but offers little spontaneous information. Salicylate/acetaminophen negative, alcohol negative at time of admit. Patient denies alcohol/substance use Patient 84 kg in June, 75kg at admit. - Pt endorses minimal solid food intake, reports he drinks most meals which are often chocolate milk - Pt brought in by family, reports he lives alone in [place]. - PO intake improving during hospitalization - Electrolyte monitoring: - K, Mg stable and WNL - Phos trending up 2.1 --> 2.4 - discontinued IVFs/KCl today - continue Mag 400 mg PO BID and KCl 20mEq PO TID - continue to trend electrolytes tomorrow Acute Psychosis - flat affect, responding to internal stimuli, history of psychiatric hospitalizations - malnutrition likely outcome of psychiatric diagnosis - Psychiatry consulted 11/18, appreciate recs: - ddx of depression with psychosis, schizophrenia, schizoaffective disorder, - less likely organic given past psych history -continue risperidone 0.5mg PO BID -increase mirtazepine to 30 mg PO QHS -will continue to follow tomorrow and will determine if patient meets criteria for inpatient psychiatric admission when medically stable ST depressions in V4 (11/17) Reported on admission, minimal changes on EKG at 2231 with no T wave inversions or reciprocal changes appreciated Troponin negative on admission Patient without chest pain QTc 433 Elevated INR (11/17) Elevated INR of 1.3, total bilirubin 1.3 with normal AST/ALT Patient denies abdominal pain/clinical history Suspect synthetic dysfunction with nutritional depletion, liver US showed no signs of biliary disease Disposition: Med/surg, psych following and will determine need for inpatient psych admission when medically stable DVT prophylaxis: SCDs CODE STATUS: Full code FEN GI: Regular Diet, no IVFs Admission and Anticipated Discharge Date Admission Date: November 21, 2019 Supervising Physician Co-Signing Physician Notes I also saw the patient with the resident physician and confirmed santos portions of the history and physical examination. I agree with the impression and plan as noted above. Upon examination, flat affect; answers questions with yes/no; some of his speech is low audible, difficult to understand. Discontinue IV fluids Encourage p.o. intake Recheck BMP in a.m. Nearing medical stability for psychiatric floor admission Subjective No acute events overnight, still mildly tachycardic with [id number] but otherwise afebrile with VS WNL. Slept minimally, sitting in chair and staring out the window throughout the night. Patient continues to be minimally talkative this morning but does answer some questions. Reports eating "something" while here but does not specify what he is eating for each meal. Reports that he pulled out several of his own teeth before this hospitalization because "they were rotting" - denies ever seeing a dentist to confirm this suspicion. Denies fever/chills, chest pain, shortness of breath. Review of Systems Constitutional: as per Subjective / HPI Respiratory: as per Subjective / HPI; no cough Cardiovascular: as per Subjective / HPI; no palpitations Gastrointestinal: no abdominal pain Physical Exam Constitutional: + thin Respiratory: normal respiratory effort, lungs clear to auscultation Cardiovascular: RRR, no murmur, no edema Gastrointestinal (Abdomen): normal bowel sounds, soft, nontender, no hepatosplenomegaly Musculoskeletal: no cyanosis or clubbing, extremities motor strength 5/5 Skin: no rashes, warm and dry Neurologic: patellar DTR's 2+ bilat, sensation intact Psychiatric: flat affect, appears to be responding to internal stimuli, short responses but logical thought process, denies SI/HI, denies auditory/visual hallucinations Lymphatic: no cervical lymphadenopathy Results & Data Results & Data ([facility]) Vital Signs (Past 12 Hours) Vital Signs Temp Pulse Pulse Resp BP Pulse Ox 11/21/19 11:15 36.8 C 98 H 20 108/72 99 11/21/19 07:53 105 H 11/21/19 07:15 36.7 C 102 H 20 103/72 96 11/21/19 03:32 36.9 C 103 H 20 100/70 99 Laboratory Results Phos 2.1 --> 2.4 today Mag 1.9 today, stable K 4.0 today, stable Diagnostic Findings Liver US 11/18 unremarkable CBC Results Results Complete Blood Count Results: RBC 4.33 M/uL (4.7-6.1) L 11/21/19 WBC 4.24 K/uL (4.8-10.8) L 11/21/19 Hgb 13.1 g/dL (14.0-18.0) L 11/21/19 Hct 37.6 % (42-52) L 11/21/19 Plt Count 104 K/uL (130-400) L 11/21/19 Chemistry (BMP) Results BMP Results: Sodium 135 mmol/L (136-145) L 11/21/19 Potassium 4.0 mmol/L (3.5-5.1) 11/21/19 Chloride 104 mmol/L (98-107) 11/21/19 BUN 3 mg/dl (7-18) L 11/21/19 Creatinine 0.67 mg/dl (0.6-1.4) 11/21/19 Glucose 87 mg/dl (70-99) 11/21/19 Resident Activity Tracking Resident Involvement: Resident Care Provided Care Provided: [facility]
[2019-11-21] MEDS: MIRTAZAPINE TAB 15 MG TAB PO SCH (20:44)
--- NOTE | 2019-11-22 00:02 | Electrocardiogram Report ---
Test Reason : Blood Pressure : / mmHG Vent. Rate : 111 BPM Atrial Rate : 111 BPM P-R Int : 168 ms QRS Dur : 062 ms QT Int : 304 ms P-R-T Axes : 068 041 050 degrees QTc Int : 413 ms Poor data quality, interpretation may be adversely affected Sinus tachycardia Low voltage QRS Borderline ECG When compared with ECG of 18-NOV-2019 22:31, ST no longer depressed in Anterior leads Confirmed by Connor Jerez ([id number]) on 11/22/2019 12:01:39 AM Referred By: REFERRED SELF Confirmed By:Connor Jerez
[2019-11-22 07:17] LABS: Hematocrit (blood only) 37.2 % (42-52); Mean Corpuscular Hemoglobin 30.4 pg (25-34); Mean Corpuscular Hgb Conc 34.9 g/dL (32-36); Mean Corpuscular Volume 86.9 fL (80-100); RDW Standard Deviation 43.4 fL (36.4-46.3); Red Blood Count 4.28 M/uL (4.7-6.1)
[2019-11-22 07:36] LABS: BUN Creatinine Ratio 5.3 (10-20); Creatinine Clr Calc Pharmacy 102.7 ml/min; Est GFR (African American) 112.9; Est GFR (Non-African American) 97.4; Magnesium 2.1 mg/dl (1.8-2.4); Potassium 3.8 mmol/L (3.5-5.1)
[2019-11-22 07:40] LABS: Phosphorus 3.6 mg/dl (2.5-4.9)
[2019-11-22 07:43] LABS: Mean Platelet Volume 9.9 fL (7.4-10.4); Platelet Count 98 K/uL (130-400)
[2019-11-22] MEDS: MAGNESIUM OXIDE 400 MG TAB PO SCH ×2 (07:48→21:26)
[2019-11-22] MEDS: POTASSIUM CHLORIDE 20 MEQ TABCR PO SCH ×3 (07:48→21:25)
[2019-11-22] MEDS: risperiDONE 0.5 MG TABLET PO SCH ×2 (07:48→21:25)
[2019-11-22 07:53] LABS: Basophils # (auto) 0.01 K/uL (0-0.2); Basophils % (auto) 0.2 %; Eosinophils # (auto) 0.05 K/uL (0-0.5); Eosinophils % (auto) 1.2 %; Immature Granulocytes # (auto) 0.01 K/uL (0.00-0.02); Immature Granulocytes % (auto) 0.2 %; Lymphocytes # (auto) 1.05 K/uL (1.2-3.4); Lymphocytes % (auto) 25.6 %; Monocytes # (auto) 0.76 K/uL (0.11-0.59); Monocytes % (auto) 18.5 %; Neutrophils # (auto) 2.22 K/uL (1.4-6.5); Neutrophils % (auto) 54.3 %
[2019-11-22] MEDS: INSULIN ASPART 100 UNITS/ML 3 ML PEN SC SCH ×4 (08:29→21:26)
--- NOTE | 2019-11-22 12:28 | Communication Note ---
Date of Service: November 22, 2019 Records from [facility] Received and Reviewed: Psychiatric Evaluation - Pt presented on 06/15/2019 for voluntary psychiatric admission with complaints of depression and SI. Pt reported struggling with depression for 2-3 years, worsened prior to admission with accompanied SI. Pt did endorse changes in sleep and instances where he has experienced auditory and visual hallucinations - "typically when he has a particularly bad night of insomnia." Pt also endorsed "fleeting homicidal thoughts with no specific target, no specific plans." Pt denied history of antoni/hypomania. It is reported that patient has a history of polio as a child. No identified concern for substance abuse. Diagnoses were given of: major depressive disorder, recurrent, severe with psychotic features - and generalized anxiety disorder. Pt was initiated on venlafaxine and aripiprazole. Estimated length of stay was 7-10 days. Discharge Summary - Date of discharge: 06/28/2019. There is report of intermittent confusion over the course of the patient's hospitalization, occasionally with delayed responses to simple questions. Pt was unable to provide any specific stressors that he felt contributed to his worsened mood, HI, or SI. Collateral was obtained from son, who reports observations that patient had been more confused for ~6 months prior to this admission. When doing well, it is reported the patient was able to care for himself independently though daughter reportedly lives down the street from the patient. Pt endorsed visual hallucinations of "seeing a woman who might be his girlfriend." Pt endorsed distrust of this woman and was "upset that she did not try to get patient help sooner." It is reported patient was compliant with medications during his admission. He was trialed on numerous agents: venlafaxine, aripiprazole, quetiapine, mirtazapine, risperidone, bupropion, and melatonin. Pt reportedly showed improvement in motivation and self-care. PCP follow-up was recommended on discharge. Pt did receive a medical consultation on 06/21/2019 to rule out stroke or dementia due to level of confusion. Neurology follow-up was recommended on discharge. Discharge diagnoses are unchanged from initial evaluation. Son was reportedly to be caregiver on discharge. Discharge medications include: bupropion SR 100mg daily, mirtazapine 22.5mg qHS, and risperidone 1mg BID "for anxiety". Psychiatric follow-up appointments were set up through [facility] in [place], [place] - for both therapy and psychiatry.
--- NOTE | 2019-11-22 12:51 | Electrocardiogram Report ---
Test Reason : Blood Pressure : / mmHG Vent. Rate : 119 BPM Atrial Rate : 119 BPM P-R Int : 164 ms QRS Dur : 074 ms QT Int : 306 ms P-R-T Axes : 067 047 068 degrees QTc Int : 430 ms Sinus tachycardia Otherwise normal ECG When compared with ECG of 21-NOV-2019 12:32, Non-specific change in ST segment in Anterior leads Confirmed by Jovany Rosa ([id number]) on 11/22/2019 12:50:48 PM Referred By: REFERRED SELF Confirmed By:Jovany Rosa
[2019-11-22] MEDS ORDERED: METOPROLOL SUCC 25MG EXT REL TAB PO SCH (13:00)
--- NOTE | 2019-11-22 14:03 | Psychiatric Progress Note ---
Date of Service November 22, 2019 Impression / Recommendations Impression RECOMMENDATIONS: 11/18 - Psychiatric consultation requested by hospitalist team to evaluate patient due to flat affect, poor self-care, and concern for history of auditory hallucinations. Records indicate patient was admitted to [facility] in 06/2019 for anxiety, HI, and passive SI. Case discussed with hospitalist resident, Dr. Coronado. - Patient is a very limited historian and unable to provide reliable information regarding his psychiatric history. Pt did admit that risperidone and bupropion (most recent psychotropic medications according to external medication history) sounded familiar, but was unsure what they were being used to treat. Pt did verbalize willingness to resume risperidone. - Little is known about previous psychiatric history, differential at this time includes: depression with psychotic features, major depressive disorder, schizophrenia, schizoaffective disorder, or potential organic causes of AMS. CT of head completed in ED without acute intracranial abnormalities. Given history, it seems most likely presentation is in some way related to underlying psychiatric history - will attempt to gather additional information as able. W ill re-evaluate patient when nearing medical clearance to determine criteria for inpatient psychiatric admission. - In the interim, suggest resuming risperidone but at a lower dose of 0.5mg BID. In order to target mood and also stimulate appetite, would suggest trial of mirtazapine - starting at 7.5mg and titrating as tolerated. Recommend patient have referrals for outpatient psychiatric providers. Will attempt to gather additional information and are available for additional recommendations as indicated. - Appreciate the opportunity to participate in the care of this patient. Please reach out to our service with any additional questions or updates. 11/20 -Patient appearing a little more interactive today. Still likely responding to internal stimuli -We will continue Risperdal 0.5 mg p.o. twice daily as trajectory appears positive however might want to consider converting this to olanzapine with less risk for EPS and akathisia which might also be ultimately appetite stimulating -Increase Remeron to 30 mg p.o. nightly to get into antidepressant range of dose. -Hopefully we will have additional records from [place] by tomorrow which will help elucidate treatment history -We will reevaluate for potential consideration for psychiatric admission once medically cleared and stable off IV fluids.. 11/21 - Re-evaluation of patient occurred today in anticipation of patient being medically cleared in the near future. - Pt admits to ongoing depression and is not able to verbalize a commitment to continuing medications or following up with outpatient psychiatric treatment. He remains confused, delayed, and unable to verbalize a reliable safety plan and remains unwilling to include son in discharge planning. - 302 petitioning statement completed by this provider, as it is felt a psychiatric hospitalization is medically necessary in order to continue medication adjustments, make appropriate aftercare arrangements, and ensure patient is demonstrating ability to reasonably care for himself before he is discharged home. It is not felt that the patient presently has the capacity to sign himself in voluntarily, as he was unable to even repeat back recom mendations verbalized by this provider regarding why psychiatric treatment was recommended. Patient has also intermittently been demanding to leave the hospital, requiring significant redirection from staff which increases concern he may attempt to leave psychiatric treatment prematurely as well. - Communicated recommendations to primary team, liaison to call [facility]. regarding 302 warrant and bed search to appropriate facilities. - We were able to hold an outpatient psychiatric appointment at [facility] in [place], [place] on 12/30/2019 at 11:00am. - Please reach out with any additional questions or updates. Interval History Identifying Information 63-year-old male admitted medically on 11/19/2019 after presenting to the ED upon recommendation from his son with failure to thrive. There is documentation of history of psychiatric hospitalizations, and there is concern that patient's flat affect, inability to care for self, and paucity of thought are related to a primary psychiatric condition. Initial psychiatric consultation completed on 11/19/2019 - patient seen today for follow-up. Chief Complaint "Um, I'm ok." Review of Systems Notes Constitutional: denied Cardiovascular: denied Respiratory: denied Gastrointestinal: reports improved appetite Neurological: denied Psychiatric: denies symptoms other than stated above Total of at least 10 systems reviewed, pertinent positives as above and in HPI. Subjective Subjective Patient's case was reviewed and discussed during morning report with supervising psychiatrist and psychiatric nurse liaison. Patient's chart reviewed and repeat labs demonstrate improvement in electrolyte disturbance. Pt has been off IV medications and is reportedly tolerating PO intake. EKG was repeated, showing sinus tachycardia but no significant change from previous study. Pt was seen today in anticipation of medical clearance in the next day or so. Pt was cooperative with psychiatric assessment, though continues to have difficulty participating in robust or meaningful conversation. Pt reports at this time that he is feeling "ok." He was again asked his understanding of what led to his hospitalization. Pt states "I haven't been feeling good", "I haven't been eating right", and "I lost a lot of weight I guess." Pt was asked to describe his mood prior to his admission, which he stated was "not good." Pt is able to recall that he was admitted to [facility], and acknowledges that he stopped his medications "about a month" after discharge. Pt does admit "I guess I didn't stay on them long enough." Pt did feel that they we only minimally helpful for his mood, but there is also evidence that he did not follow-up with most of his outpatient psychiatric appointments (only made 1 therapy appointment, no psychiatric appointments after discharge). This provider attempted to ask questions that may facilitate safety planning. Pt was asked what barriers he felt were present after his last hospitalization that prevented success. He states only "maybe I could get a schedule." Pt is unable to clearly verbalize that he would continue medications or be willing to follow-up with outpatient appointments if he were discharged home. This provider explained reasoning why inpatient psychiatric admission would be recommended after discharge. When asked if he was willing for this admission, he nodded his head. In order to assess if patient had capacity to sign in voluntarily for treatment, the patient was asked to even just repeat this reasoning - which he could not successfully do. Pt was asked if he would be concerned about returning home in his current state, and he again nodded his head. Pt spent most of the interview intently staring out the window. When asked if there was anything in particular he was looking at or anyone else in the room with us, patient laughed to himself but did confirm or deny. After several minutes, it seemed patient was more aware of discharge recommendations being made. He stated "can I have some time to think about it, I'm still paying insurance bills." Pt still was not able to participate in any meaningful safety planning conversations after this point. Primary team was updated with events of interview and informed of recommendation to pursue inpatient psychiatric treatment. Updated psychiatric nurse liaison as well, who will assist with calling a mental health delegate and securing a 302 warrant. Physical Exam Psychiatric Orientation: alert, oriented to person and oriented to place Continues to appear confused. Level of disorganization and paucity of thought seems to be interfering with patient's full cooperation. Apperance: appropriately dressed, appropriately groomed (appearing mildly disheveled, though hygiene appears adequate) and appeared stated age Eye Contact: + poor eye contact (staring intently out window, rarely making direct eye contact) Motor Behavior: no abnormal motor movements (though somewhat restless, fidgeting, intensely scratching head) Speech: + abnormal rate/rhythm/volume of speech (brief responses to questions, often repeating questions before answering) Affect: + flat affect and + constricted affect Mood: + depressed mood (not too good) and + anxious mood Thought Process: + thought blocking and + concrete thought process; + thought process not goal directed and + thought process not clear or coherent Hallucinations: no auditory hallucinations and no visual hallucinations Though intense staring off in the distance and level of distractibility suggests patient may be responding to internal stimuli Cognition: + recent memory not intact, + attention not intact and + language not intact Insight: + impaired insight Judgement: + impaired judgement Vital Signs (Past 24 Hours) Last Vital Signs Temp 36.6 C 11/22/19 12:00 Pulse 118 H 11/22/19 12:00 Resp 19 11/22/19 12:00 BP 94/67 L 11/22/19 12:00 Pulse Ox 98 11/22/19 12:00 Results & Data ([facility]) Laboratory Results Laboratory Results - last 24 hr 11/21/19 11/21/19 11/22/19 16:36 20:37 06:58 WBC 4.10 L RBC 4.28 L Hgb 13.0 L Hct 37.2 L MCV 86.9 MCH 30.4 MCHC 34.9 RDW Std Deviation 43.4 RDW Coeff of Ludwig 14.0 Plt Count 98 L MPV 9.9 Immature Gran % (Auto) 0.2 Neut % (Auto) 54.3 Lymph % (Auto) 25.6 Haines % (Auto) 18.5 Eos % (Auto) 1.2 Baso % (Auto) 0.2 Neut # (Auto) 2.22 Lymph # (Auto) 1.05 L Haines # (Auto) 0.76 H Eos # (Auto) 0.05 Baso # (Auto) 0.01 Immature Gran # (Auto) 0.01 Sodium Potassium Chloride Carbon Dioxide Anion Gap BUN Creatinine Est Cr Clr Drug Dosing Est GFR ( Amer) Est GFR (Non-Af Amer) BUN/Creatinine Ratio Glucose POC Glucose 117 H 108 H Calcium Phosphorus Magnesium 11/22/19 11/22/19 11/22/19 06:58 07:41 11:57 WBC RBC Hgb Hct MCV MCH MCHC RDW Std Deviation RDW Coeff of Ludwig Plt Count MPV Immature Gran % (Auto) Neut % (Auto) Lymph % (Auto) Haines % (Auto) Eos % (Auto) Baso % (Auto) Neut # (Auto) Lymph # (Auto) Haines # (Auto) Eos # (Auto) Baso # (Auto) Immature Gran # (Auto) Sodium 139 Potassium 3.8 Chloride 107 Carbon Dioxide 25 Anion Gap 7.0 BUN 4 L Creatinine 0.78 Est Cr Clr Drug Dosing 102.7 Est GFR ( Amer) 112.9 Est GFR (Non-Af Amer) 97.4 BUN/Creatinine Ratio 5.3 L Glucose 101 H POC Glucose 106 H 122 H Calcium 9.0 Phosphorus 3.6 D Magnesium 2.1 Current Inpatient Medications Current Inpatient Medications: Current Inpatient Medications Dextrose (Dextrose 50% 50 Ml Syringe) 25 - 50 ml IV UD PRN; Protocol PRN Reason: Hypoglycemia Protocol Stop: 12/19/19 02:31 Glucagon (Glucagon For Inj 1 Mg Vial) 1 mg SQ UD PRN; Protocol PRN Reason: Hypoglycemia Protocol Stop: 12/19/19 02:31 Glucose (Glucose 10 Tabs/Tube) 4 - 8 tabs PO UD PRN; Protocol PRN Reason: Hypoglycemia Protocol Stop: 12/19/19 02:31 Glucose (Glucose 40% Gel 15 Gm Tube) 15 - 30 gm PO UD PRN; Protocol PRN Reason: Hypoglycemia Protocol Stop: 12/19/19 02:31 Haloperidol Lactate (Haloperidol Lactate 5 Mg/Ml 1 Ml Vial) 5 mg IM DAILY PRN PRN Reason: severe agitation/pt safety Stop: 12/19/19 02:31 Insulin Aspart (Insulin Aspart 100 Units/Ml 3 Ml Pen) 0 units SC ACHS TAI Stop: 12/19/19 07:29 Last Admin: 11/22/19 12:37 Dose: 1 units Documented by: Magnesium Oxide (Magnesium Oxide 400 Mg Tab) 400 mg PO BID [facility] Stop: 12/19/19 08:59 Last Admin: 11/22/19 07:48 Dose: 400 mg Documented by: Metoprolol Succinate (Metoprolol Succ 25mg Ext Rel Tab) 25 mg PO QAM TAI Stop: 12/22/19 12:59 Mirtazapine (Mirtazapine Tab 15 Mg Tab) 30 mg PO HS TAI Stop: 12/21/19 20:59 Last Admin: 11/21/19 20:44 Dose: 30 mg Documented by: Miscellaneous (Carbohydrates For Hypoglycemia ) 15 - 30 gm PO UD PRN PRN Reason: Hypoglycemia Protocol Stop: 12/19/19 02:31 Potassium Chloride (Potassium Chloride 20 Meq Tabcr) 20 meq PO TID TAI Stop: 12/19/19 08:59 Last Admin: 11/22/19 07:48 Dose: 20 meq Documented by: Risperidone (Risperidone 0.5 Mg Tablet) 0.5 mg PO BID TAI Stop: 12/19/19 20:59 Last Admin: 11/22/19 07:48 Dose: 0.5 mg Documented by: Mental Health & Subst Abuse Tx Psychiatrist Name of Psychiatrist: [facility] Psychiatrist's Date of Appointment with Psychiatrist: 12/30/19 Time of Appointment with Psychiatrist: 11:00 Psychiatric Appointment Comment: [address], [place] [address] Therapist Name of Therapist: None Therapy Appointment Comment: Patient is able to be scheduled with a therapist at [facility] if desired
--- NOTE | 2019-11-22 16:01 | Hospitalist Progress Note ---
Date of Service November 22, 2019 Assessment & Plan (1) Acute dehydration: Anshu Sosa is a 63-year-old male with a past medical history of emergency department evaluation for anxiety and potential auditory hallucinations who presented on 11/18/2019 with his son who was concerned for FTT and weight loss. Patient is medically stable with electrolytes WNL without need for IVFs, but he continues to have flat affect and appears to be responding to internal stimuli. Failure to thrive and malnutrition - Pt with flat affect and poverty of speech. History limited. Pt not guarded, but offers little spontaneous information. Salicylate/acetaminophen negative, alcohol negative at time of admit. Patient denies alcohol/substance use Patient 84 kg in June, 75kg at admit. - Pt endorses minimal solid food intake, reports he drinks most meals which are often chocolate milk - Pt brought in by family, reports he lives alone in [place]. - PO intake improving during hospitalization - Electrolyte monitoring: - K, Mg, Phos stable and WNL without IVFs for 24 hours - continue Mag 400 mg PO BID and KCl 20mEq PO TID - continue to trend electrolytes tomorrow - patient medically stable Acute Psychosis - flat affect, responding to internal stimuli, history of psychiatric hospitalizations - malnutrition likely outcome of psychiatric diagnosis - Psychiatry consulted 11/18, appreciate recs: - ddx of depression with psychosis, schizophrenia, schizoaffective disorder, - less likely organic given past psych history -continue risperidone 0.5mg PO BID -continue mirtazepine to 30 mg PO QHS -patient meets criteria for inpatient psychiatric admission at this time - psych is currently working on getting the patient an open bed in an inpatient psychiatric facility. ST depressions in V4 (11/17) Reported on admission, minimal changes on EKG at 2231 with no T wave inversions or reciprocal changes appreciated Troponin negative on admission Patient without chest pain QTc 433 Elevated INR (11/17) Elevated INR of 1.3, total bilirubin 1.3 with normal AST/ALT Patient denies abdominal pain/clinical history Suspect synthetic dysfunction with nutritional depletion, liver US showed no signs of biliary disease Disposition: Med/surg, medically stable, psych following and in process of arranging inpatient psychiatric hospitalization DVT prophylaxis: SCDs CODE STATUS: Full code FEN GI: Regular Diet, no IVFs Admission and Anticipated Discharge Date Admission Date: November 21, 2019 Supervising Physician Co-Signing Physician Notes I personally examined the patient and verified all santos points of history and exam, discussed case, and agree with decision making with Dr Coronado. feeling ok. ate pancake for breakfast. no other new copmlaints. talks about wanting to go home but does not argue with idea of inpatient psych stay. vitals noted nad heent nc at mmm breathing unlabored no accessory msucles good effort skin no rashes no pallor or icterus failure to thrive related to acute psychosis -treat psychosis, encourage PO intake tachycardia - sinus, therefore reflexive. initially likely was from volume depletion/etc - but now that this is more remedied, suspect related to emotional distress - but ongoing - and reasonably high rates, so temporarily OK to manage sinus tach w beta maryan (especially since BP leaves plenty of room to do so) and follow closely. Subjective No acute events overnight, still tachycardic with [id number] but otherwise afebrile with VS WNL. EKG yesterday and today showed sinus tachycardia with no abnormalities. Slept better last night, sleeping in his bed at times but sitting up in chair at other times. Patient is more talkative this morning but still does not answer some questions and has significant delay in responding. Rarely maintains eye contact - often staring blankly in another direction. Reports eating "something" while here but does not specify what he is eating for each meal. Denies fever/chills, chest pain, shortness of breath, abdominal pain, nausea/vomiting, rashses. Review of Systems Constitutional: as per Subjective / HPI Respiratory: as per Subjective / HPI; no cough Cardiovascular: as per Subjective / HPI; no palpitations Gastrointestinal: as per Subjective / HPI Genitourinary: no dysuria Physical Exam Constitutional: + thin Respiratory: normal respiratory effort, lungs clear to auscultation Cardiovascular: RRR, no murmur, no edema Gastrointestinal (Abdomen): normal bowel sounds, soft, nontender, no hepatosplenomegaly Musculoskeletal: no cyanosis or clubbing, extremities motor strength 5/5 Skin: no rashes, warm and dry Neurologic: patellar DTR's 2+ bilat, sensation intact Psychiatric: continues to have flat affect, appears to be responding to internal stimuli, short but logical speech, denies SI/HI, denies auditory/visual hallucinations Lymphatic: no cervical lymphadenopathy Results & Data Results & Data ([facility]) Vital Signs (Past 12 Hours) Vital Signs Temp Pulse Pulse Resp BP Pulse Ox 11/22/19 15:35 36.5 C 108 H 18 118/79 98 11/22/19 15:00 108/66 11/22/19 12:00 36.6 C 118 H 19 94/67 L 98 11/22/19 08:00 126 H 11/22/19 06:27 36.7 C 127 H 20 110/76 99 Laboratory Results K 3.8 Phos 3.6 Mg 2.1 Diagnostic Findings EKG on 11/20 and 11/21: sinus tachycardia CBC Results Results Complete Blood Count Results: RBC 4.28 M/uL (4.7-6.1) L 11/22/19 WBC 4.10 K/uL (4.8-10.8) L 11/22/19 Hgb 13.0 g/dL (14.0-18.0) L 11/22/19 Hct 37.2 % (42-52) L 11/22/19 Plt Count 98 K/uL (130-400) L 11/22/19 Chemistry (BMP) Results BMP Results: Sodium 139 mmol/L (136-145) 11/22/19 Potassium 3.8 mmol/L (3.5-5.1) 11/22/19 Chloride 107 mmol/L (98-107) 11/22/19 BUN 4 mg/dl (7-18) L 11/22/19 Creatinine 0.78 mg/dl (0.6-1.4) 11/22/19 Glucose 101 mg/dl (70-99) H 11/22/19 Resident Activity Tracking Resident Involvement: Resident Care Provided Care Provided: Adult [facility] Medicine
--- NOTE | 2019-11-22 18:17 | Billing Data ---
Date of Service November 22, 2019 Coding Level of Care Code 87448 Subseq Hosp Care Lvl 3
[2019-11-22] MEDS: MIRTAZAPINE TAB 15 MG TAB PO SCH (21:24)
[2019-11-23] MEDS ORDERED: METOPROLOL TARTRATE 25 MG TAB PO ONE (02:09)
--- NOTE | 2019-11-23 18:04 | Discharge Summary ---
Date of Service November 23, 2019 Admission HPI Per Admitting Provider Anshu Sosa is a 63-year-old male with a past medical history of emergency department evaluation for anxiety and potential auditory hallucinations who presents with his son who was concerned for failure to thrive. Anshu was brought into the emergency department by his son who had not seen him in a month and a half, but reports that his father appears to have lost weight, has been disheveled, and is not able to care for himself at home. Patient has a history of inpatient psych hospitalization in [place], however due to refusal to share information/records the son and provider team is unaware of the details of that admission. He was seen in 06/13 at the emergency department and at that time had expressed depressed mood with SI with plan and positive HI. When asked if he remembers being in the emergency department previously patient reports "I think", but is does not give details. He reports that he was started on medication during his hospitalization at [place], but does not know which medicine he was started on, and has not taken it in "a while "and reports he is not sure about how long it is been. He denies current SI/HI/AH/VH. He endorses that he still struggles with anxiety, but is not sure about what. Denies pain, fever, chills, recent illness. He reports that he eats "normally ". He reports that he "drinks mostly liquids "for his meals, usually chocolate milk. Reports that he does eat "sometimes regular food ", but but does not name any that he has eaten in the last month or give a timeframe for the last time that he had solid food. He denies diarrhea/constipation/abdominal pain/nausea/vomiting. History limited by affect/cognitive status. Limited medical, surgical, allergy, and social history and EMR reviewed. Patient denies alcohol, tobacco, and recreational drug use. CODE STATUS: Full code, patient does not show a good understanding of what CPR is or why the question is being asked. Admission Exam Per Admitting Provider Physical Exam: General: A&Ox1. NAD. Cooperative. HEENT: Atraumatic, normocephalic. Pulm: CTAB A&P. -wheezes, -rales, -rhonchi. Symmetrical chest rise. No increase work of breathing. No respiratory distress. Cardiac: RRR, -mrg. Radial pulses intact and symmetrical. Psych: Appearance: Disheveled, unshowered, unshaven Speech: Speech with slow rate, increased latency, sot volume. No stuttering. Poverty of spontaneous speech. Behavior: Decreased activity. Gazes around the room, appears intermittently distracted. Otherwise makes adequate eye contact. Cooperative, friendly Thought Processes: Poverty of spontaneous speech. Thought Content: Denies SI/HI, rumination. Endorses anxiety, does not eleborate on cause. Perceptions: Denies AH/VH. Appears distracted gazing around the room, otherwise not responding to internal stimuli. No delusions are present. Mood "OK". Affect flat. Range: Blunted/flattened Cognition: Unable to assess, gives limited appropriate answers to questions Insight/Judgment: Limited/difficult to assess. Principal Diagnosis Unspecified Psychosis Chronic Malnutrition Discharge Exam Constitutional: + thin Respiratory: normal respiratory effort, lungs clear to auscultation Cardiovascular: sinus tachycardia, no murmur, no edema Gastrointestinal (Abdomen): normal bowel sounds, soft, nontender, no hepatosplenomegaly Musculoskeletal: no cyanosis or clubbing, extremities motor strength 5/5 Skin: no rashes, warm and dry Neurologic: patellar DTR's 2+ bilat, sensation intact Psychiatric: continues to have flat affect, appears to be responding to internal stimuli, short but logical speech, denies SI/HI, denies auditory/visual hallucinations Lymphatic: no cervical lymphadenopathy Discharge Data Allergies Allergy/AdvReac Type Severity Reaction Status Date / Time No Known Allergies Allergy Unknown Verified 11/18/19 22:50 Consultations 11/19/19 00:41 ED Decision to Admit Stat 11/19/19 01:58 Consult Case Management - Discharge Planning Routine 11/19/19 02:32 Consult Psychiatry Routine Ordered Studies 11/18/19 21:58 CT head/brain wo con Urgent 11/19/19 10:00 US liver Routine Hospital Course (1) Unspecified psychosis: Anshu Sosa is a 63-year-old male with a past medical history of emergency department evaluation for anxiety and potential auditory hallucinations who presented on 11/18/2019 with his son who was concerned for malnutrition and weight loss. \\ Chronic Malnutrition: The patient was found to have lost 9kg since June admission, and he was started on IVFs and was started on K, Mg, Phos supplementation due to concern for re- feeding syndrome upon re-starting regular diet. The patient ate all three meals while hospitalized, although he ate minimally. His electrolytes were adequately repleted and remained stable/within normal limits after IVFs and IV supplements were discontinued on 11/19. The patient was continued on PO supplements with Magnesium 400 mg PO BID and KCl 20mEq PO TID, and he will continue to take these medications after discharge. Unspecified Psychosis: When the patient was admitted, he was found to have flat affect, was responding to internal stimuli and had short, delayed responses. He has a history of psychiatric hospitalizations with many past psychiatric medication trials. Psychiatry was consulted on 11/18 and started the patient on Risperidone 0.5 mg PO BID as well as Mirtazepine 30 mg PO QHS, as the patient had tried these medications during most recent hospitalization in 06/2019. After the patient was medically stable, he was determined to meet criteria for inpatient psychiatry admission and was transferred on 11/22 in the morning for further evaluation and management of unspecified psychosis. Sinus Tachycardia: The patient was admitted with mild tachycardia in the 100s-110s that persisted throughout the hospitalization. He has no history of heart or lung problems, and he continued to have other vital signs stable/WNL and looked well from a cardiorespiratory standpoint on exam. He had an EKG on 11/20 and 11/21 which showed sinus tachycardia with no abnormalities. It was determined that his sinus tachycardia was most likely secondary to acute psychosis. He was started on Metoprolol XL 25 mg PO daily on 11/21 for acute rate control in the setting of acute psychosis, and he should continue taking this medication after discharge. He should stop taking the medication after his psychosis is under control and stable. (2) Chronic malnutrition: Total Time Total Time Spent Total Time Spent (In Minutes): <30 attending time Total Time Includes: Examination of the Patient, Discharge Planning, Medication Reconciliation and Communication With Other Providers Discharge Plan Discharge Items Patient Disposition: Transfer Behavioral Health Fac Reason For Visit: [facility]PO[place]ALEM[facility] Discharge Diagnosis: Chronic Malnutrition Unspecified Psychotic Disorder Activity: Per Instructions section Non-emergency contact: Primary Care Provider and Psychiatrist Call non-emergency contact if: you have any medication questions and your symptoms worsen Follow-up/Referrals: Calderon Elizalde [Primary Care Provider] - Diet: Regular and Carb Count or DM1 Addtl Attending Provider Instructions: You were admitted to [facility] on 11/19/2019 because of concerns for malnutrition and an unspecified psychiatric disorder. Your son brought you in because you were living alone and were not sufficiently eating for several months. He was concerned that you had lost more than 30 pounds in several months because you were unable to take care of yourself. We found that several of your electrolytes, including Magnesium, Phosphorus and Potassium, were low due to malnutrition, so we repleted these electrolytes and gave you IV fluids because you were also dehydrated. We started you on a regular diet in the hospital, and you regained your strength with regular meals, IV fluids, and electrolyte repletion. You also had high heart rates of 100s-110s during the hospitalization, and an EKG showed that you had a regular heart rhythm and the high rate was likely due to your psychosis and associated anxiety. You were started on Metoprolol Succinate XL to take daily, to ensure that your heart rate is controlled, especially during your current flare of psychosis. Psychiatry was consulted as well due to your symptoms of flat affect, inattention and lack of responsiveness that, along with your previous psychiatric history, was concerning for an unspecified psychotic disorder. Psychiatry was able to locate records from your previous psychiatric hospitalization and you were re-started on some of the psychiatric medications that had previously worked for you, during this hospitalization - Risperidone 0.5 mg twice a day and Mirtazepine 30 mg nightly. You will be transferred to another facility for inpatient psychiatric hospitalization on 11/22, for further evaluation and management of your unspecified psychotic disorder. Pending Studies at Discharge: No Stand-Alone Forms: My [facility] Medications and DC Order Prescriptions: New potassium chloride [Klor-Con M20] 20 mEq Tablet,Er Particles/Crystals 20 meq PO DAILY Qty: 30 RF: 0 magnesium oxide 400 mg (241.3 mg magnesium) Tablet 400 mg PO DAILY Qty: 30 RF: 0 mirtazapine 15 mg Tablet 30 mg PO HS Qty: 30 RF: 0 metoprolol succinate 25 mg Tablet Extended Release 24 Hr 25 mg PO QAM Qty: 30 RF: 0 risperidone 0.5 mg Tablet 0.5 mg PO BID Qty: 60 RF: 0 Continued simvastatin 40 mg tablet 40 mg PO DAILY RF: 0 Discharge Orders: Discharge Order (Routine); Ordered 11/23/19 Ordered By: Ba Moscoso Admission Data Admit Date/Time: 11/21/19 11:07 Attending Provider: Xu Cabrales Admit Provider: Ba Moscoso Primary Care Provider: Calderon Elizalde Other Providers: Raphael Marsh ; Castro Cardona ; Zhang Silva Other Interventions: Discharge Summary Assessment (RN) Last Done: 11/23/19 07:31 PSY Interdisciplinary Discharge Planning Last Done: 11/22/19 14:38 Supervising Physician Co-Signing Physician Notes pt stable for discharge to inpatient psych. discharged prior to my being able to see him due to bed availability and transport. as above Resident Activity Tracking Resident Involvement: Resident Care Provided Care Provided: Adult Hospital Medicine
== END 2019-11-23 07:40 ==
LOC: 2S 21:35 → ED 21:35 → SUATTDRO 11-19 01:43 → 2S 11-19 02:12 → 2N 11-20 11:27 → SUATTDRO 11-21 11:07